=== PATIENT | male | born 1990 | race Caucasian/White ===

== ENCOUNTER 2019-01-06 18:23 | Emergency (ER) | payer OTHER, SELFPAY ==
[2019-01-06 18:31] VITALS: BP 140/88; PULSE 63; RESP 16; TEMP 36.4; O2SAT 97; BMI 30.9
--- NOTE | 2019-01-06 18:43 | ED_ITS ---
HPI - Abdominal Pain General Chief Complaint: Abdominal Pain Stated Complaint: sharp left side abdominal pain Time Seen by Provider: 01/06/19 18:33 Source: patient Mode of arrival: Ambulatory Limitations: no limitations History of Present Illness HPI narrative: 28-year-old otherwise healthy male here for evaluation of left- sided abdominal pain. Patient states the symptoms started yesterday. Not a sudden onset however it did reach its maximum intensity within a fairly short period of time. Has been the same potentially worsening since yesterday. No urinary symptoms. No bowel changes. No nausea vomiting. No prior abdominal surgeries. Pain not radiating into his testicles. No recent travel. No recent camping. Not drinking untreated water. No skin changes. His fairly pinpoint tenderness to his left lower quadrant Review of Systems Constitutional Constitutional: Denies fever(s) and Denies headache(s) ENT Ears, Nose, Mouth, and Throat: Denies headache(s) Cardiovascular Cardiovascular: Denies chest pain and Denies dyspnea Respiratory Respiratory: Denies dyspnea Gastrointestinal Gastrointestinal: Reports abdominal pain, Denies change in stool character, Denies nausea and Denies vomiting Genitourinary Genitourinary: Denies genital pain, Denies dysuria and Denies testicular mass Musculoskeletal Musculoskeletal: Denies myalgias and Denies arthralgias Integumentary/Breasts Skin/Breast: Denies lesions and Denies rash Neurologic Neurologic: Denies behavioral changes and Denies headache(s) Psychiatric Psychiatric: Denies behavioral changes Hematologic/Lymphatic Hematologic/Lymphatic: Denies easy bleeding and Denies easy bruising Allergic/Immunologic Allergic/Immunologic: Denies urticaria [facility] Medical History Healthy adult (Acute) Social History Smoking Status: Never smoker Social History Smoking Status: Never smoker Exam Initial Vital Signs Initial Vital Signs: Vital Signs Temperature 97.5 F L 01/06/19 18:31 Pulse Rate 63 01/06/19 18:31 Respiratory Rate 16 01/06/19 18:31 Blood Pressure 140/88 01/06/19 18:31 Pulse Oximetry 97 01/06/19 18:31 Const General: cooperative, comfortable, well developed and well groomed Orientation: alert, awake and oriented x3 HENMT Head: normal to inspection and normocephalic Resp Effort & Inspection: normal respiratory effort Auscultation: clear to auscultation bilaterally Cardio Rate: regular rate Rhythm: regular rhythm GI Inspection: non-distended Palpation: soft, No firm and tender (Left lower quadrant) Skin Lesions: no lesions Rashes: no rashes Neuro General: alert and awake Cognition: normal cognition Speech: speech normal Motor: muscle tone normal throughout Extrem General: normal to inspection and capillary refill normal Psych Appearance: grossly normal and well kempt Course Orders Ordered: ED Orders 01/06/19 18:44 CT abdomen pelvis w con Stat 01/06/19 19:00 Complete Blood Count AUTO DIFF Stat Comprehensive Metabolic Panel Stat Lipase Stat Discontinued Medications Sodium Chloride (Normal Saline 0.9%) 1,000 mls @ 1,000 mls/hr IV BOLUS ONE Stop: 01/06/19 19:42 Last Infusion: 01/06/19 20:11 Dose: 0 mls/hr Documented by: Admin: 01/06/19 19:05 Dose: 1,000 mls/hr Documented by: CLAYTON Ketorolac Tromethamine (Toradol) 30 mg IV NOW ONE Stop: 01/06/19 18:44 Last Admin: 01/06/19 19:04 Dose: 30 mg Documented by: CLAYTON Vital Signs Vital signs: Vital Signs - 8 hr 01/06/19 18:31 01/06/19 19:58 Temperature 97.5 F L Pulse Rate 63 61 Respiratory Rate 16 16 Blood Pressure 140/88 Blood Pressure [Right Arm] 118/80 Pulse Oximetry 97 99 MDM - Abdominal Pain Lab Data Attestation: I reviewed the patient's lab results. Result diagrams: 01/06/19 19:00 01/06/19 19:00 Labs: Lab Results 01/06/19 01/06/19 Range/Units 19:00 19:00 WBC 8.2 (4.5-11.0) X10^3/uL RBC 4.64 (4.5-5.9) X10^6/uL Hgb 14.3 (13.5-17.5) g/dL Hct 42.0 (41-53) % MCV 90.5 (80-100) fL MCH 30.8 (26-34) PG MCHC 34.0 (30-36) % RDW 13.7 (11.6-14.8) % Plt Count 237 (150-400) X10^3/uL Neut % (Auto) 60.5 (50-75) % Lymph % (Auto) 27.9 (25-40) % Randolph % (Auto) 10.0 (3-14) % Eos % (Auto) 1.1 L (2-4) % Baso % (Auto) 0.5 (0-2) % Neut # (Auto) 5000 (5816-4174) /uL Lymph # (Auto) 2300 (2206-2975) /uL Randolph # (Auto) 800 (0-900) /uL Eos # (Auto) 100 (0-450) /uL Baso # (Auto) 0 (0-100) /uL Sodium 137 (137-145) mmol/L Potassium 3.7 (3.4-5.1) mmol/L Chloride 100 (98-107) mmol/L Carbon Dioxide 27 (22-32) mmol/L BUN 21 H (9-20) mg/dL Creatinine 1.10 (0.66-1.25) mg/dL Estimated GFR > 60.0 (>60) mL/min BUN/Creatinine Ratio 19.1 (6-22) Glucose 102 H (70-100) mg/dL Calcium 9.2 (8.4-10.2) mg/dL Total Bilirubin 0.3 (0.2-1.3) mg/dL AST 36 (17-59) IU/L ALT 54 (21-72) IU/L Alkaline Phosphatase 81 (38-126) U/L Total Protein 7.4 (6.3-8.2) g/dL Albumin 4.4 (3.5-5.0) g/dL Globulin 3.0 (1.7-4.1) g/dL Albumin/Globulin Ratio 1.5 (1.0-2.8) Lipase 136 (23-300) U/L Point of care testing: Urine Dip Bedside Urine Glucose Negative Bedside Urine Bilirubin - Negative Bedside Urine Ketone - Negative Urine Specific [place] 1.015 Bedside Urine Occult Blood - Negative Bedside Urine pH 6.5 Bedside Urine Protein - Negative Bedside Urine Urobilinogen - Negative Bedside Urine Nitrite - Negative Bedside Urine Leukocytes - Negative Esterase Imaging Data CT scan - abdomen: Radiologist's impression: [address] [address] [address] Scan Report Signed Patient: Bryan Renee#: [id number] : 1990Acct:[id number] Age/Sex: 28 / MDate of Service: 01/06/19 Loc: ED Accession Number: [id number] Procedure: CT abdomen pelvis w con Ordering Provider: Dwight Courtney D.O. PROCEDURE: CT ABDOMEN PELVIS W CON INDICATIONS: Left-sided abdominal pain TECHNIQUE: After the administration of intravenous contrast, 5 mm thick sections acquired from the diaphragm to the symphysis. 5 mm coronal and sagittal reformats were acquired. For radiation dose reduction, the following was used: automated exposure control, adjustment of mA and/or kV according to patient size. COMPARISON: None. FINDINGS: Image quality: Excellent. ABDOMEN: Lung bases: Lung bases are clear. Heart size is normal. Solid organs: Liver is normal in size and enhancement. Gallbladder is contracted. Biliary system is non dilated. Pancreas enhances normally. Spleen is normal in size and enhancement. No adrenal nodules. Kidneys demonstrate normal size and enhan cement, without hydronephrosis. Peritoneum and bowel: Bowel loops demonstrate normal wall thickness and caliber. The appendix is thin walled and gas filled. Trace pericolonic fat stranding is p resent within the descending colon (series 2, image 57). No pneumatosis or pneumoperitoneum. There are scattered sigmoid diverticula. No evidence for diverticulitis. Nodes and vessels: No retroperitoneal or mesenteric adenopathy by size criteria. Aorta and inferior vena cava are normal in size. Miscellaneous: No ventral hernias. PELVIS: Genitourinary: Bladder wall thickness is normal. Miscellaneous: No inguinal hernias or adenopathy. Bones: No suspicious bony lesions. No vertebral body compression fractures. IMPRESSION: 1. Mild pericolonic fat stranding of the descending colon suggesting early acute colitis. 2. Normal appendix. Diverticulosis. No acute diverticulitis. These findings were discussed with Dr. Courtney at 8:02 PM on 01/06/19. Dictated by: Deepika Mckeon M.D. on 01/06/2019 at 19:58 Approved by: Deepika Mckeon M.D. on 01/06/2019 at 20:0 MDM Narrative Medical decision making narrative: CT scan is concerning for colitis. I did discuss this with radiologist who called me to inform me of the findings. She did not think that it was consistent with diverticulitis however he does have diverticula in the left lower quadrant. This is corresponding to the location of the patient's symptoms. he is nontoxic appearing. Has a benign abdominal exam. We will hold on antibiotics. Did discuss the use of Tylenol and ibuprofen. He will stay hydrated. he was given return precautions and follow- up instructions. He will follow up with his primary provider. He expressed understanding and agreement plan. Discharge Plan Departure Patient Disposition: Home Clinical Impression: Colitis Discharge Date/Time: 01/06/19 20:20 Instructions: DI for Colitis Activity Restrictions/Additional Instructions: Be sure to increase your fluid intake over the next couple days. I would not be surprised if you develop some diarrhea. Contact your primary provider for fol low-up. Return to the emergency department for any new or worsening symptoms
[2019-01-06] MEDS: KETOROLAC 60 MG/2 ML VIAL 30 MG IV (19:04)
[2019-01-06] MEDS: SODIUM CHLORIDE 0.9% 1,000 ML 1000 ML IV (19:05)
[2019-01-06 19:07] LABS: Add Manual Diff / Slide Review NO; Basophils Absolute Auto 0 /uL (0-100); Basophils Percent Auto 0.5 % (0-2); Eosinophils Absolute Auto 100 /uL (0-450); Eosinophils Percent Auto 1.1 % (2-4); Hemoglobin 14.3 g/dL (13.5-17.5); Lymphocytes Absolute Auto 2300 /uL (1100-4500); Lymphocytes Percent Auto 27.9 % (25-40); Mean Corpuscular Hemoglobin 30.8 PG (26-34); Mean Corpuscular Volume 90.5 fL (80-100); Monocytes Absolute Auto 800 /uL (0-900); Neutrophils Absolute Auto 5000 /uL (1500-7000); Neutrophils Percent Auto 60.5 % (50-75); Platelet Count 237 X10^3/uL (150-400); Red Blood Cell Count 4.64 X10^6/uL (4.5-5.9); Red Cell Distribution Width 13.7 % (11.6-14.8); White Blood Cell Count 8.2 X10^3/uL (4.5-11.0)
[2019-01-06 19:22] LABS: Alanine Aminotransferase 54 IU/L (21-72); Albumin 4.4 g/dL (3.5-5.0); Albumin Globulin Ratio 1.5 (1.0-2.8); Alkaline Phosphatase 81 U/L (38-126); Aspartate Aminotransferase 36 IU/L (17-59); BUN Creatinine Ratio 19.1 (6-22); Bilirubin Total 0.3 mg/dL (0.2-1.3); Blood Urea Nitrogen 21 mg/dL (9-20); Calcium 9.2 mg/dL (8.4-10.2); Carbon Dioxide 27 mmol/L (22-32); Chloride 100 mmol/L (98-107); Estimated Glomerular Filt Rate > 60.0 mL/min (>60); Glucose 102 mg/dL (70-100); HEMOLYSIS 32 (0-50); Lipase 136 U/L (23-300); Potassium 3.7 mmol/L (3.4-5.1); Sodium 137 mmol/L (137-145); Total Protein 7.4 g/dL (6.3-8.2)
[2019-01-06 19:58] VITALS: BP 118/80; PULSE 61; RESP 16; O2SAT 99
== END 2019-01-06 20:20 | disposition home or self-care (01) ==
PROVIDERS: Emergency Provider Emergency Medicine
DX: K52.9 Noninfective gastroenteritis and colitis, unspecified (principal)
CPT/HCPCS: 36415; 74177; 80053; 81003; 83690; 85025; 96361; 96374; 99283; 99284; J1885; Q9967